=== PATIENT | female | born 1960 | race Caucasian/White ===

== ENCOUNTER 2017-01-18 05:12 | Day surgery (SDC) | payer MEDICARE ==
[2017-01-17 11:54] LABS: BASOPHILS 0.8 % (0.0-2.0); HEMATOCRIT 39.8 % (36.0-48.0); HEMOGLOBIN 13.2 g/dL (12-16); IMMATURE GRANULOCYTES 0.2 % (0-5); LYMPHOCYTES 46.3 % (15-50); MCH 30.6 pg (26.0-34.0); MCHC 33.2 g/dL (31.0-37.0); MCV 92.3 fL (80.0-100.0); MEAN PLATELET VOLUME 10.5 fL (7.4-10.4); MONOCYTES 10.9 % (2-11); NEUTROPHILS 38.8 % (40-80); PLATELET COUNT 259 10x3/uL (130-400); RBC 4.31 10x6/uL (4.00-5.40); RDW 13.1 % (11.5-14.5)
[2017-01-17 12:03] LABS: CALC OSMOLALITY 275 mosm/kg (275-300); CALCIUM 9.8 mg/dL (8.5-10.1); CARBON DIOXIDE 29.2 mmol/L (21.0-32.0); CHLORIDE - SERUM 103 mmol/L (98-107); CREATININE - SERUM 0.8 mg/dL (0.6-1.3); GLUCOSE 99 mg/dL (74-106); SODIUM 138 mmol/L (136-145); UREA NITROGEN 13 mg/dL (7-18); eGFR NON AFRICAN AMERICAN 78 mL/min (90-120)
[~2017-01-18] VITALS: Ht 162.6 cm; Wt 70.5 kg
[2017-01-18] VITALS (8 sets, daily range): BP systolic 120–155; BP diastolic 66–87; Ht 162.6 cm; Wt 70.5 kg
[~2017-01-18 05:12] MED LIST: NEXIUM20 MG PO
--- NOTE | 2017-01-18 10:45 | NUR ---
PATIENT IN BED RESTING QUIETLY AT THIS TIME. NO COMPLAINTS OR SIGNS OF DISTRESS. CALL LIGHT WITHIN REACH.
--- NOTE | 2017-01-18 10:59 | NUR ---
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 COMPLAINTS OF MILD PAIN TO SHOULDERS AND ABDOMEN. BANDAIDS X 5 NOTED TO ABDOMENT ALL CLEAN DRY AND INTACT. SCDS APPLIED BILAT. CALL LIGHT IN REACH. SPOUSE AT BEDSIDE
--- NOTE | 2017-01-18 13:21 | NUR ---
PT IS RESTING IN BED WITH EYES OPEN. STATES: " I THINK IM STARTING TO WAKE UP GOOD. IM FEELING OK, BUT MY NECK HURTS AT TIMES. I HAD SURGERY ON IT NOT VERY LONG AGO." INCISIONS TO ABD ARE CDI. NO DRAINAGE NOTED. 2 FAMILY MEMBERS ARE AT BEDSIDE.
--- NOTE | 2017-01-18 15:36 | NUR ---
PT IS RESTING IN BED WITH EYES CLOSED. OPENS EYES TO VERBAL STIMULI. DENIES PAIN OR DISCOMFORT. NO NEEDS VOICED. VSS.
--- NOTE | 2017-01-18 18:24 | NUR ---
PT RESTING IN BED WITH EYES OPEN. NO NEEDS VOICED.
--- NOTE | 2017-01-18 19:15 | NUR ---
ASSESSMENT COMPLETED,NO ACUTE DISTRESS NOTED AT THIS TIME, SCD'S AND FALL PRECAUTIONS IN PLACE, CL IN REACH, WILL MONITOR
--- NOTE | 2017-01-18 19:23 | NUR ---
PRN ZOFRAN GIVEN PER MAR FOR NAUSEA, ASSISTED TO RESTROOM AND BACK, CECE WELL, NO EMESIS, DENIES NEEDS AT THIS TIME, CL IN REACH, WILL MONITOR
--- NOTE | 2017-01-18 21:39 | NUR ---
MEDS GIVEN PER MAR, CECE WELL, DENIES NEEDS, CL IN REACH
--- NOTE | 2017-01-18 23:50 | NUR ---
RESTING WITH EYES CLOSED, RESP WITH EASE, NO DISTRESS NOTED, FALL PRECAUTIONS IN PLACE, CL IN REACH
[2017-01-19] VITALS: BP 127/67
--- NOTE | 2017-01-19 01:28 | NUR ---
RESTING WITH EYES CLOSED, RESP WITH EASE, SCD'S IN PLACE, CL IN REACH
[2017-01-19 04:00] VITALS: BP 134/72
[2017-01-19 06:13] LABS: BASOPHILS 0.1 % (0.0-2.0); EOSINOPHILS 0.1 % (0-7); HEMATOCRIT 36.5 % (36.0-48.0); HEMOGLOBIN 12.6 g/dL (12-16); IMMATURE GRANULOCYTES 0.2 % (0-5); LYMPHOCYTES 15.7 % (15-50); MCH 31.7 pg (26.0-34.0); MCHC 34.5 g/dL (31.0-37.0); MCV 91.7 fL (80.0-100.0); MEAN PLATELET VOLUME 10.5 fL (7.4-10.4); MONOCYTES 9.5 % (2-11); NEUTROPHILS 74.4 % (40-80); PLATELET COUNT 255 10x3/uL (130-400); RBC 3.98 10x6/uL (4.00-5.40); RDW 13.1 % (11.5-14.5)
[2017-01-19 06:14] LABS: WBC 10.4 10x3/uL (4.8-10.8)
[2017-01-19 06:36] LABS: CALC OSMOLALITY 278 mosm/kg (275-300); CALCIUM 8.4 mg/dL (8.5-10.1); CARBON DIOXIDE 24.9 mmol/L (21.0-32.0); CHLORIDE - SERUM 105 mmol/L (98-107); CREATININE - SERUM 0.7 mg/dL (0.6-1.3); GLUCOSE 113 mg/dL (74-106); POTASSIUM - SERUM 3.7 mmol/L (3.5-5.1); SODIUM 140 mmol/L (136-145); eGFR NON AFRICAN AMERICAN > 90 mL/min (90-120)
[2017-01-19 06:40] LABS: UREA NITROGEN 9 mg/dL (7-18)
--- NOTE | 2017-01-19 07:48 | NUR ---
RESTING IN BED, FAMILY AT BEDSIDE, DENIES NEEDS, STATES SHE'S FEELING WELL, WILL AMBULATE LATER, PAIN TOLERABLE, CALL LIGHT IN REACH, BED LOWEST POSIITON, WILL CONTINUE TO MONITOR
[2017-01-19 08:26] VITALS: BP 136/74
--- NOTE | 2017-01-19 09:35 | NUR ---
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 no complaints of nausea or severe pain. states comber operator controls pain. ambulated in fong with assist x 1 to end of nurses station and back. sitting in chair at moment. call light in reach
[2017-01-19] MEDS ORDERED: HYDROCODONE-APA1 TAB PO (10:31)
[2017-01-19] MEDS ORDERED: PHENERGAN25 M1 PO (10:32)
[2017-01-19] MEDS ORDERED: REGLAN10 MG PO (10:32)
[2017-01-19 18:02] VITALS: BP 150/82
[2017-01-20 04:00] VITALS: BP 130/74
--- NOTE | 2017-01-20 05:26 | NUR ---
PATIENT IS RESTING IN BED. IS AWAKE WATCHING TV. DENIES PAIN AT THIS TIME. DENIES ANY NEEDS AT THIS TIME. RESP EVEN AND UNLABORED. SHOWS NO SIGNS OF DISTRESS. INTRUCTED TO CALL IF NEEDED ANYTHING. VERBALIZED UNDERSTANDING. BED LOW, LOCKED, CALL LIGHT IN REACH.
[2017-01-20 07:56] VITALS: BP 144/82
--- NOTE | 2017-01-20 08:15 | NUR ---
SITTING IN CHAIR, REQUESTING TO PUT ON CLOTHES AND WASH OFF, DENEIS OTHER NEEDS, CALL LIGHT IN REACH, BED LOWEST POSITION, DENIES PAIN IN UPPER ABDOMEN
[2017-01-20 12:14] VITALS: BP 162/74
[2017-01-20 15:42] VITALS: BP 155/80
--- NOTE | 2017-01-20 19:30 | NUR ---
PT RECEIVED SITTING UP IN ROOM ON SIDE OF BED. AT BEDSIDE. PT DRESSED. PT ANTICIPATING DISCHARGE UPON PHYSICIAN MAKING ROUNDS. RESPIRATIONS EVEN AND UNLABORED. LUNG SOUNDS CLEAR BILATERALLY. PT DENIES PAIN OR NEEDS AT THIS TIME. CALL LIGHT AND H2O IN PT REACH.
--- NOTE | 2017-01-20 22:07 | NUR ---
DISCHARGE INSTURCTIONS GONE OVER WITH PT AND GIVEN TO PT, PT VERBALIZED UNDERSTANDING. APPT DATE AND TIME FOR FOLLOW UP GIVEN TO PT, PT VERBALIZED UNDERSTANDING. IV REMOVED FROM RIGHT FOREARM, PRESSURE APPLIED, NO ACTIVE BLEEDING NOTED, DRESSING APPLIED. PT EDUCATION PROVIDED TO PT. PT LEFT UNIT ACCOMPANIED BY SPOUSE, PT DISCHARGED TO HOME. PT LEFT FACILITY VIA PRIVATE VEHICLE.
--- NOTE | 2017-01-28 13:21 | OP ---
PATIENT NAME: OMAYRA PELAEZ MEDICAL RECORD: [id number] :58 LOCATION:[facility] ADMISSION DATE: SURGEON: ROMEO WINKLER MD DATE OF OPERATION: 01/18/2017 PREOPERATIVE DIAGNOSIS: Gastroesophageal reflux disease. POSTOPERATIVE DIAGNOSIS: Gastroesophageal reflux disease. PROCEDURE: Laparoscopic Bill fundoplication. SURGEON: Romeo Winkler MD REPORT OF PROCEDURE: The patient's abdomen was prepped and draped in sterile fashion. A Veress needle was inserted in the left upper quadrant and abdomen was insufflated. An 11-mm Visiport trocar was inserted in the midline just above the umbilicus. Under direct visualization, we could see the Veress needle and there was no sign of any injury to bowel or surrounding structures. A 12-mm trocar was then placed in the left subcostal region. A 5-mm trocar was placed in the epigastrium, a 5-mm trocar was placed in the left lateral abdomen and a final 5-mm trocar was placed in the right lateral subcostal region. The liver retractor was inserted and the left lobe of the liver was elevated and a dissection was performed starting on the lesser omentum. This was done using Harmonic scalpel and was continued up to the right side of the right samantha. We dissected the right side of the right samantha free and extended up into the thoracic cavity releasing any adhesions, which were present. We continued as far as we could go anteriorly and posteriorly. Once we had done this, and we moved to the greater curvature of the stomach and for approximately, the upper third of the stomach, we took down the short gastrics using Harmonic scalpel. We continued all the way to the left side of the right samantha and dissected this portion of the samantha free. At this point, we had the esophagus completely visible in a 360 degree inspection. The patient had no signs of the hiatal hernia. We reapproximated the esophageal hiatus with 2 separate 0 Polydek using an EndoStitch device. We then pulled the fundus of the stomach posteriorly and performed a 360 degree Bill wrap. This was done with 3 separate 0 Polydek with the top and the bottom suture incorporating a bite of the esophagus. This wrap appeared to be in good position. At the conclusion of the case, there was no sign of any active bleeding. The liver retractor was removed. The 11 and 12-mm trocar site fascia were closed with 0 Vicryls using a Clemente-Lacey suture passer device. At this point, the ports and insufflation were then removed. The subcutaneous tissues were irrigated out with normal saline and then the skin was closed with subcutaneous 5-0 Monocryl. We infused with a total of 10 mL of 0.25% Marcaine with epinephrine surrounding the incisions and then dressed appropriately. COMPLICATIONS: None. CONDITION: Stable. ANESTHESIA: General endotracheal and local. BLOOD LOSS: Minimal. TRANSINT:[id number] Voice Confirmation ID: [id number] DOCUMENT ID: [id number] OPERATIVE REPORT [id number] OMAYRA PELAEZ CHRISTIAN MD at 1321 CC: TAHIRA PARIS MD and JENNIFER FORD MD [id number] DICTATION DATE: 01/18/17 0952 GENERAL ACCOUNTANT: 01/18/17 1024 [facility] 01/20/17 [id number] [place] [address]
== END 2017-01-20 22:10 | disposition home or self-care (01) ==
LOC: D.MS 05:12 → D.OPS 05:12 → D.MS 10:08 → D.OPS 01-20 22:10
PROVIDERS: Surgery
DX: K21.9 Gastro-esophageal reflux disease without esophagitis (principal); T81.89XA Other complications of procedures, not elsewhere classified, initial encounter; K22.8 Other specified diseases of esophagus; Z79.891 Long term (current) use of opiate analgesic; Z79.899 Other long term (current) drug therapy; Z88.0 Allergy status to penicillin